=== PATIENT | female | born 1960 | race Caucasian/White ===

== ENCOUNTER → 2016-07-09 | Outpatient (CLI) | payer BC, OTHER ==
--- NOTE | 2016-07-10 09:33 | DI ---
RIGHT BREAST ULTRASOUND, 07/09/2016 4:03 PM: Clinical History: Recall for abnormal screening mammogram from 07/01/2016, that revealed 2 low-density opaque spherical lesions in the right axillary tail. The larger lesion has been stable, but there wa s suspicion of increased size in the smaller more superiorly located lesion. Scans are performed by the technologist and myself through all four quadrants of the right breast wit h the high resolution linear array probe. Color Doppler ultrasound was also performed. High in the right upper quadrant is a 3 mm circular hypoechoic nodule that with color Doppler ultraso und shows flow. This lesion when compared with the mammogram is consistent with a small axillary lymp h node. The larger lesion measures approximately 5 x 5 x 6 mm in diameter and is also well-circumscri bed and hypoechoic with vascularity within it. There is a fatty hilum and this nodule is consistent w ith a lymph node. Scans through the remainder of the pressure with no solid or cystic lesions. Follow Up: As long as this patient remains clinically asymptomatic, she may reenter a routine breast surveillance protocol consisting of monthly self breast exams if she so desires, and mammograms every year. BIRADS Category: 2. Benign finding. The smaller 3 mm nodule in the larger roughly 6 mm nodule represe nt benign lymph nodes. Assessment: Benign finding.
== END ==
LOC: MAMMO 15:25
PROVIDERS: ATTEND Nurse Practitioner Family
DX: R92.8 Other abnormal and inconclusive findings on diagnostic imaging of breast (principal)
CPT/HCPCS: 76641